=== PATIENT | female | born 1955 | race Two or more races ===

== ENCOUNTER 2024-04-11 09:09 | Emergency (ER) | payer OTHER ==
[2024-04-11 09:33] VITALS: PULSE 74; BMI 34.2
[2024-04-11 10:51] LABS: BASO % 0.8 % (0-2.0); EOS % 2.8 % (0-4.5); HEMATOCRIT 36.7 % (32.4-45.2); HEMOGLOBIN 12.2 GM/dL (10.7-15.3); LYMPH % 25.9 % (8-40); MCH 31.1 pg (25.7-33.7); MCHC 33.4 g/dl (32.0-36.0); MEAN CELL VOLUME 93.3 fl (80-96); MEAN PLT VOLUME 8.1 fl (7.5-11.1); MONO % 7.8 % (3.8-10.2); NEUT % 62.7 % (42.8-82.8); PLATELET COUNT 253 10^3/uL (134-434); RBC 3.94 M/mm3 (3.60-5.2); RDW 14.1 % (11.6-15.6); WHITE BLOOD COUNT 7.7 K/mm3 (4.0-10.0)
[2024-04-11 10:52] LABS: PH,URINE 6.5 (5.0-8.0); URINE APPEARANCE CLEAR; URINE BILIRUBIN NEGATIVE (NEGATIVE); URINE COLOR YELLOW; URINE GLUCOSE (UA) NEGATIVE (NEGATIVE); URINE KETONE NEGATIVE (NEGATIVE); URINE LEUK ESTERASE NEGATIVE (NEGATIVE); URINE NITRITE NEGATIVE (NEGATIVE); URINE PROTEIN NEGATIVE (NEGATIVE)
[2024-04-11] MEDS ORDERED: FAMOTIDINE 20 MG/50 ML IVPB 20 MG/50 ML MG IVPB ONE (10:55)
[2024-04-11] MEDS ORDERED: MECLIZINE HCL 25 MG TABLET (FP) ONE (10:55)
[2024-04-11] MEDS: MECLIZINE HCL 25 MG TABLET (FP) PO ONE (11:01)
[2024-04-11] MEDS: FAMOTIDINE 20 MG/50 ML IVPB 20 MG/50 ML MG IVPB ONE (11:01)
[2024-04-11 11:10] LABS: POTASSIUM 4.2 mmol/L (3.5-5.1)
[2024-04-11 11:11] LABS: CALCIUM 9.4 mg/dL (8.5-10.1)
[2024-04-11 11:12] LABS: ALBUMIN 3.6 g/dl (3.4-5.0); BLOOD UREA NITROGEN 15.4 mg/dL (7-18)
[2024-04-11 11:16] LABS: CREATININE 0.8 mg/dL (0.55-1.3)
[2024-04-11 11:17] LABS: BILIRUBIN,TOTAL 0.3 mg/dL (0.2-1); TOT PROT 7.1 g/dl (6.4-8.2)
[2024-04-11 15:23] VITALS: BP 142/78; RESP 19; TEMP 98.4
== END 2024-04-11 17:15 | disposition left against medical advice (07) ==
LOC: JER 09:09
PROC: 3E033GC Introduction of Other Therapeutic Substance into Peripheral Vein, Percutaneous Approach (ICD-10-PCS; principal; 2024-04-11)
DX: R10.12 Left upper quadrant pain (principal); R10.13 Epigastric pain; G89.29 Other chronic pain; R42 Dizziness and giddiness
CPT/HCPCS: 36415; 74177-TC; 80053; 81003; 85025; 87086; 93005; 93010; 96365; 99285-25; Q9967